=== PATIENT | male | born 1965 | race Caucasian/White ===

== ENCOUNTER 2018-02-04 13:33 | Emergency (ER) | payer OTHER ==
[~2018-02-04] VITALS: Ht 175.3 cm; Wt 86.2 kg
[2018-02-04] MEDS ORDERED: PAIN RELIEF500 M1 PO (13:46)
== END 2018-02-04 13:54 | disposition home or self-care (01) ==
LOC: ED 13:33
DX: M79.89 Other specified soft tissue disorders (principal); M79.674 Pain in right toe(s)

== ENCOUNTER 2018-11-21 09:08 | Day surgery (SDC) | payer OTHER ==
[~2018-11-21] VITALS: Ht 175.3 cm; Wt 88.5 kg
[~2018-11-21 09:08] MED LIST: FENOFIBRATE145 MG PO; PAIN RELIEF500 M1 PO
[2018-11-21] MEDS ORDERED: OMEPRAZOLE20 MG PO (09:46)
--- NOTE | 2018-11-21 11:14 | NUR ---
11/21/18 Farzad4 Farida Quijano 1110-PATIENT ARRIVED TO PACU ON 2L NC PATIENT REACTIVE TO DEEP STIMULI OPENING EYES ORIENTED TO PACU VERY DROWSY BACK TO SLEEP. RR EVEN. REPOSITIONS SELF IN BED.
--- NOTE | 2018-11-22 06:17 | OR ---
[facility] [address], [place] [address] Signed DATE OF OPERATION: 11/21/2018 SURGEON: Jhoana Wooten MD PREOPERATIVE DIAGNOSES: 1. Chewed snuff for many years. 2. Esophageal dysphagia. 3. History of daily alcohol use down to 2 times per week. 4. Anorexia with weight loss of 15 pounds in a month. 5. Left lower quadrant abdominal pain. 6. Diarrhea. POSTOPERATIVE DIAGNOSES: 1. Mild diffuse gastritis. 2. Small hiatal hernia. 3. 4 mm rectal polyp at 15 cm. 4. 4 mm rectal polyps x3 at 20 cm. PROCEDURES: 1. Esophagogastroduodenoscopy with CLOtest and biopsies of the duodenum, antrum, and gastroesophageal junction. 2. Colonoscopy with hot biopsy and random cold biopsies x2. ESTIMATED BLOOD LOSS: None. INDICATIONS: Royer is a 53-year-old gentleman, asked to see me for both upper and lower endoscopy. He presents with the above preoperative concerns. He said he chewed the tobacco for many years and has been having left lower quadrant abdominal pain. It seems to be worse when he eats or if he has a couple of beers. He said that he has not felt well and he has lost 15 pounds the last month and has cut his food back significantly. 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 He said he is pretty nervous about the whole situation. He had been to his primary care provider. He was asked to see me with respect to the above. In the office, I gave him a booklet on both upper and lower endoscopy. We reviewed the nature of the two tests along with the risks including, but not limited to gas bloating, crampy abdominal pain, bleeding, perforation, requiring surgery, and missed diagnosis. We also discussed the need for IV conscious sedation. He had expressed understanding and wished to proceed. Electronically Signed By: JHOANA WOOTEN MD 11/22/1817 PATIENT NAME: INDU MERAZ JR OPERATIVE REPORT DATE OF : 67 REPORT #: [id number] PHYSICIAN: JHOANA WOOTEN MD PCP: ANGELA ATWOOD MD REPORT IS CONFIDENTIAL AND NOT TO BE RELEASED WITHOUT AUTHORIZATION [facility] [address], [place] [address] Signed PROCEDURE NOTE: Royer was taken into our endoscopy suite and placed in the supine semi-recumbent position. The posterior oropharynx was anesthetized with lidocaine spray. A bite block was utilized for the case. Royer was actually pretty anxious coming into the endoscopy suite. We used a total of 14 mg of Versed and 200 mcg of fentanyl to get through both cases. The adult gastroscope had been introduced and advanced all the way out into the third portion of the duodenum under direct visualization of camera without difficulty. We took a biopsy of the duodenum because of the history of diarrhea; however, the duodenum and pyloric channel looked unremarkable. The stomach showed some very mild superficial erythematous changes throughout. We went ahead and took a biopsy out of the antrum for pathologic review as well as CLOtest. No evidence of any ulcerations. Upon retroflexion of the scope, he does have just a small hiatal hernia. There were no gastric or esophageal varices. The scope was withdrawn up through the area of the GE junction, which was compliant without stricture. He does have [id number] disruption to the Z-line. We went ahead and took a couple of biopsies along the Z-line for pathologic review. The distal esophagus, the middle and upper esophagus were unremarkable. We looked around the vocal cord, the arytenoids, and the epiglottis and all seemed to be fine. After this, the gas had been suctioned out and the gastroscope removed. Indu tolerated the upper endoscopy quite well. Indu was then rotated into the left lateral decubitus position. He was maintained on the IV sedation with Versed and fentanyl. Digital rectal exam was performed. He had good sphincter tone. No external hemorrhoids. He had moderate induration to his prostate gland, although not particularly enlarged. No dominant nodules. The adult colonoscope was introduced and advanced all around into the cecum under direct visualization of camera without difficulty. It took some extra sedation and abdominal compression in order to advance the scope into the cecum itself. Royer's prep was good. He had some areas of bile-stained stool that was adherent to the mucosa. We took pictures throughout for photodocumentation. We could easily see the akiak foot, the appendiceal orifice, and the ileocecal valve. On our way back, we took a couple of random biopsies for pathologic review. However, we saw no evidence of any inflammatory changes, no colon polyps, and no diverticulosis. At the top of the rectum, he had several small polyps removed with a hot biopsy forceps. Upon retroflexion of scope, he had very minimal routine internal hemorrhoid tissue. After this, the gas was suctioned out, colonoscope removed. Royer tolerated the procedure quite well. RECOMMENDATIONS: I will see Royer back in my office in 7 to 14 days to review his results. Electronically Signed By: JHOANA WOOTEN MD 11/22/18 0617 PATIENT NAME: INDU MERAZ JR OPERATIVE REPORT DATE OF : 67 REPORT #: [id number] PHYSICIAN: JHOANA WOOTEN MD PCP: ANGELA ATWOOD MD REPORT IS CONFIDENTIAL AND NOT TO BE RELEASED WITHOUT AUTHORIZATION [address] [place], [place] [address] Signed Jhoana Wooten MD ALB/MODL /[id number] cc: MD Jhoana Perales MD Copies: JHOANA WOOTEN MD ~ Electronically Signed By: JHOANA WOOTEN MD 11/22/18 0617 PATIENT NAME: INDU MERAZ JR OPERATIVE REPORT DATE OF : 67 REPORT #: [id number] PHYSICIAN: JHOANA WOOTEN MD PCP: ANGELA ATWOOD MD REPORT IS CONFIDENTIAL AND NOT TO BE RELEASED WITHOUT AUTHORIZATION
== END 2018-11-21 12:20 | disposition home or self-care (01) ==
LOC: OPS 09:08 → DS 09:08 → OPS 10:30 → DS 10:30 → OPS 12:20
PROVIDERS: Colon & Rectal Surgery
PROC: 0DB48ZX Excision of Esophagogastric Junction, Via Natural or Artificial Opening Endoscopic, Diagnostic (ICD-10-PCS; 2018-11-21)
PROC: 0DBE8ZX Excision of Large Intestine, Via Natural or Artificial Opening Endoscopic, Diagnostic (ICD-10-PCS; 2018-11-21)
PROC: 0DB98ZX Excision of Duodenum, Via Natural or Artificial Opening Endoscopic, Diagnostic (ICD-10-PCS; principal; 2018-11-21 10:30)
PROC: 0DB78ZX Excision of Stomach, Pylorus, Via Natural or Artificial Opening Endoscopic, Diagnostic (ICD-10-PCS; 2018-11-21 10:30)
DX: K63.5 Polyp of colon (principal); K64.8 Other hemorrhoids; K29.50 Unspecified chronic gastritis without bleeding; K29.80 Duodenitis without bleeding; K20.9 Esophagitis, unspecified; K31.9 Disease of stomach and duodenum, unspecified; K44.9 Diaphragmatic hernia without obstruction or gangrene; E78.5 Hyperlipidemia, unspecified; Z79.899 Other long term (current) drug therapy
CPT/HCPCS: 86677; 99153; G0500; J2250; J3010; J7120

== ENCOUNTER 2019-01-09 12:55 | Emergency (ER) | payer OTHER ==
[~2019-01-09] VITALS: Ht 175.3 cm; Wt 88.5 kg
[~2019-01-09 12:55] MED LIST changes: +OMEPRAZOLE20 MG PO
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
[2019-01-09] MEDS ORDERED: PERCOCET 5-3251 EACH PO (13:36)
[2019-01-09] MEDS ORDERED: NORCO 5-325 TA1 EACH PO (13:53)
== END 2019-01-09 14:02 | disposition home or self-care (01) ==
LOC: ED 12:55
DX: Z76.0 Encounter for issue of repeat prescription (principal); Z79.899 Other long term (current) drug therapy
CPT/HCPCS: 99281

== ENCOUNTER 2019-09-08 23:20 | Emergency (ER) | payer OTHER ==
[~2019-09-08] VITALS: Ht 175.3 cm; Wt 88.5 kg
[~2019-09-08 23:20] MED LIST changes: +NORCO 5-325 TA1 EACH PO; +PERCOCET 5-3251 EACH PO
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
[2019-09-09] MEDS ORDERED: PERCOCET 5-3251 EACH PO (00:52)
[2019-09-09] MEDS ORDERED: CYCLOBENZAPRINE10 MG PO (00:52)
== END 2019-09-09 01:29 | disposition home or self-care (01) ==
LOC: ED 23:20
DX: S29.012A Strain of muscle and tendon of back wall of thorax, initial encounter (principal); X58.XXXA Exposure to other specified factors, initial encounter
CPT/HCPCS: 71046; 96374; 99285-25; J3010

== ENCOUNTER 2024-10-04 12:40 | Emergency (ER) | payer MEDICARE, OTHER ==
[~2024-10-04] VITALS: Ht 175.3 cm; Wt 84.1 kg
[~2024-10-04 12:40] MED LIST changes: +AMOXICILLIN500 MG PO; +CLEOCIN HCL300 MG PO; +CYCLOBENZAPRINE10 MG PO; +DICLOFENAC SODI75 MG PO; +IBU600 MG PO
[2024-10-04] MEDS ORDERED: OMEPRAZOLE20 MG PO (13:44)
[2024-10-04] MEDS ORDERED: LIDOCAINE/RACEPINEP/TETRACAINE 3 ML SYR TOP ONE (16:00)
[2024-10-04] MEDS ORDERED: ONDANSETRON ODT4 MG PO (16:11)
[2024-10-04] MEDS ORDERED: PERCOCET 5-3251 EACH PO (16:11)
[2024-10-04 16:22] VITALS: BP 143/89
== END 2024-10-04 16:24 | disposition home or self-care (01) ==
LOC: ED 12:40
DX: T22.211A Burn of second degree of right forearm, initial encounter (principal); T22.112A Burn of first degree of left forearm, initial encounter; F17.200 Nicotine dependence, unspecified, uncomplicated; Z79.899 Other long term (current) drug therapy
CPT/HCPCS: 99283